=== PATIENT | male | born 2000 | race Two or more races ===

== ENCOUNTER 2023-08-30 20:40 | Emergency (ER) | payer OTHER ==
[~2023-08-30] VITALS: Ht 165.1 cm; Wt 68.0 kg
[2023-08-30] MEDS ORDERED: 0.9 % SODIUM CHLORIDE 1,000 ML IV ONE (21:15)
[2023-08-30] MEDS ORDERED: FAMOTIDINE/PF 20 MG/2 ML VIAL IV PUSH ONE (21:15)
[2023-08-30] MEDS ORDERED: ONDANSETRON HCL 2 MG/ML VIAL IV ONE (21:15)
[2023-08-30] MEDS ORDERED: HYOSCYAMINE SULFATE 0.125 MG TAB.SUBL SL ONE (21:15)
[2023-08-30] MEDS ORDERED: ACETAMINOPHEN 500 MG GEL..CAP PO ONE (22:00)
[2023-08-30 22:03] LABS: HEMATOCRIT 45.6 % (39.0-48.0); MEAN CELL VOLUME 89.7 fL (80.0-100.00); MEAN CORPUSCULAR HEMOGLOBIN 31.4 pg (27.00-32.0); PLATELET COUNT 235 K/uL (150-450); RED BLOOD COUNT 5.08 M/uL (4.00-6.00)
[2023-08-30 22:22] LABS: ALBUMIN 4.2 gm/dL (3.4-5.0); BILIRUBIN TOTAL 0.46 mg/dL (0.3-1.2); CREATININE SERUM 1.13 mg/dL (0.70-1.30); GFR 79.07; GLOBULINA 3.8 G/DL (2.4-3.5); POTASSIUM 3.69 mEq/L (3.5-5.1)
[2023-08-30] MEDS ORDERED: 0.9 % SODIUM CHLORIDE 1,000 ML IV SCH (22:30)
== END 2023-08-30 23:26 | disposition home or self-care (01) ==
LOC: ER 20:40
PROVIDERS: General Practice
DX: J10.1 Influenza due to other identified influenza virus with other respiratory manifestations (principal); Z20.822 Contact with and (suspected) exposure to COVID-19